=== PATIENT | male | born 2000 | race Caucasian/White ===

== ENCOUNTER 2018-12-28 18:10 | Emergency (ER) | payer OTHER ==
[~2018-12-28] VITALS: Ht 172.7 cm; Wt 59.0 kg
[~2018-12-28 18:10] MED LIST: ACETAMINOPHEN-1 EAC1 PO; AMOXICILLIN 50500 MG PO; BACTRIM DS TAB1 EACH PO; BENADRYL25 MG PO; CARAFATE 1 GM TA1 GM PO; HYDROCODONE-AP1 EAC6 PO; HYDROXYZINE HCL25 M1 PO; IBUPROFEN 400400 M2 PO; NOHOMEMEDICATIONS; PEPCID20 MG PO; PREDNISONE10 MG PO; PROAIR HFA8.5 GM INH; TESTOSTERON100 MG/ML IM; ZOFRAN ODT4 MG DISSOLVE; ZOFRAN ODT4 MG PO; ZPAK PO
[2018-12-28 18:55] LABS: ABSOLUTE BASOPHILS 0.1 thou/uL (0.0-0.2); ABSOLUTE EOSINOPHILS 0.1 thou/uL (0.0-0.7); ABSOLUTE MONOCYTES 0.7 thou/uL (0.0-1.2); ABSOLUTE NEUTROPHILS 5.1 thou/uL (1.6-8.1); BASOPHILS 0.7 %; EOSINOPHILS 1.2 %; HEMOGLOBIN 14.9 gm/dL (14.0-18.0); LYMPHOCYTES 25.5 %; MCH 29.7 pg (26.0-34.0); MCHC 34.7 g/dL (28.0-37.0); MCV 85.6 fL (80.0-100.0); MONOCYTES 8.2 %; MPV 8.1 fl. (7.2-11.1); NUCLEATED RBCS 0 /100WBC; PLATELET COUNT* 215 thou/uL (150-400); POLYS 64.4 %; RBC 5.03 mil/uL (4.50-6.00); RDW-CV 12.5 % (10.5-14.5)
[2018-12-28 18:57] LABS: CALCIUM 9.6 mg/dL (8.5-10.1); CREATININE 0.8 mg/dL (0.6-1.3); POTASSIUM 3.3 mmol/L (3.5-5.1)
[2018-12-28 19:02] LABS: ALBUMIN 4.6 g/dL (3.4-5.0); MAGNESIUM 1.8 mg/dL (1.8-2.4); TOTAL BILIRUBIN 0.5 mg/dL (<0.1-1.0); TOTAL PROTEIN 7.8 g/dL (6.4-8.2)
[2018-12-28] MEDS ORDERED: KLOR-CON 1010 MEQ PO (19:19)
[2018-12-28] MEDS ORDERED: MAGOX 400400 MG PO (19:22)
[2018-12-28 20:10] VITALS: BP 132/81
--- NOTE | 2018-12-29 12:07 | EKG ---
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
== END 2018-12-28 20:11 | disposition home or self-care (01) ==
LOC: M.ERS 18:10
PROVIDERS: Nurse Practitioner Psychiatric/Mental Health
DX: E87.6 Hypokalemia (principal); R51 Headache; R41.82 Altered mental status, unspecified; F41.9 Anxiety disorder, unspecified; F60.9 Personality disorder, unspecified

== ENCOUNTER 2020-01-27 17:19 | Emergency (ER) | payer OTHER, BC ==
[~2020-01-27] VITALS: Ht 172.7 cm; Wt 64.9 kg
[~2020-01-27 17:19] MED LIST changes: +KLOR-CON 1010 MEQ PO; +MAGOX 400400 MG PO
[2020-01-27] MEDS ORDERED: ZANAFLEX4 MG PO (17:36)
[2020-01-27] MEDS ORDERED: DIFLUCAN150 M1 PO (17:36)
[2020-01-27] MEDS ORDERED: NAPROSYN500 MG PO (17:36)
[2020-01-27 17:49] VITALS: BP 140/70
== END 2020-01-27 17:53 | disposition home or self-care (01) ==
LOC: M.ERS 17:19
DX: S39.012A Strain of muscle, fascia and tendon of lower back, initial encounter (principal); R21 Rash and other nonspecific skin eruption; F41.9 Anxiety disorder, unspecified; X50.1XXA Overexertion from prolonged static or awkward postures, initial encounter; Y93.89 Activity, other specified; Y92.89 Other specified places as the place of occurrence of the external cause; Y99.0 Civilian activity done for income or pay

== ENCOUNTER 2020-03-18 14:35 | Emergency (ER) | payer BC ==
[~2020-03-18] VITALS: Ht 81.3 cm; Wt 66.7 kg
[~2020-03-18 14:35] MED LIST changes: +DIFLUCAN150 M1 PO; +NAPROSYN500 MG PO; +ZANAFLEX4 MG PO
[2020-03-18] MEDS ORDERED: SEROQUEL200 MG PO (14:45)
[2020-03-18 15:20] LABS: HEMATOCRIT 43.3 % (42.0-52.0); HEMOGLOBIN 15.1 gm/dL (14.0-18.0); LYMPHOCYTES 15.3 %; MCH 29.8 pg (26.0-34.0); MCHC 34.8 g/dL (28.0-37.0); MCV 85.7 fL (80.0-100.0); MPV 8.6 fl. (7.2-11.1); PLATELET COUNT* 226 thou/uL (150-400); POLYS 76.9 %; RBC 5.06 mil/uL (4.50-6.00); RDW-CV 12.4 % (10.5-14.5); WBC 7.8 thou/uL (4.0-11.0)
[2020-03-18 15:21] LABS: ABSOLUTE BASOPHILS 0.1 thou/uL (0.0-0.2); ABSOLUTE LYMPHOCYTES 1.2 thou/uL (0.8-5.3); ABSOLUTE MONOCYTES 0.5 thou/uL (0.0-1.2); BASOPHILS 1.1 %; EOSINOPHILS 0.3 %; MONOCYTES 6.4 %; NUCLEATED RBCS 0 /100WBC
[2020-03-18 15:26] LABS: CALCIUM 9.2 mg/dL (8.5-10.1); CREATININE 0.8 mg/dL (0.6-1.3); POTASSIUM 3.3 mmol/L (3.5-5.1)
[2020-03-18 15:30] LABS: ALBUMIN 4.8 g/dL (3.4-5.0); TOTAL BILIRUBIN 0.9 mg/dL (<0.1-1.0); TOTAL PROTEIN 8.1 g/dL (6.4-8.2)
[2020-03-18] MEDS ORDERED: BENTYL 20 MG TA20 M1 PO (16:13)
[2020-03-18] MEDS ORDERED: ONDANSETRON HCL4 M2 PO (16:13)
[2020-03-18 16:58] LABS: URINE BILIRUBIN NEGATIVE (Negative); URINE BLOOD NEGATIVE (Negative); URINE CLARITY CLEAR; URINE COLOR YELLOW; URINE GLUCOSE-RANDOM NEGATIVE (Negative); URINE KETONES 1+ (Negative); URINE LEUKOCYTES-REFLEX NEGATIVE (Negative); URINE NITRITE-REFLEX NEGATIVE (Negative); URINE PROTEIN TRACE (Negative); URINE SPECIFIC GRAVITY <= 1.005 (1.005-1.030); URINE UROBILINOGEN 0.2 E.U./dl (0.2-1.0)
[2020-03-18 17:15] VITALS: BP 130/73
== END 2020-03-18 17:15 | disposition home or self-care (01) ==
LOC: M.ERS 14:35
PROVIDERS: Nurse Practitioner Family
DX: K52.9 Noninfective gastroenteritis and colitis, unspecified (principal); E86.0 Dehydration; Z87.01 Personal history of pneumonia (recurrent); Z90.49 Acquired absence of other specified parts of digestive tract